=== PATIENT | male | born 1990 | race Caucasian/White ===

== ENCOUNTER → 2017-05-19 | Outpatient (CLI) | payer MEDICARE, OTHER ==
[~2017-05-19] MED LIST: /CELE20CA OR; /DULO30CA PO; /LOR25TA PO; /QUET10TA OR; ATIV0.5T OR; BACL10TA2 OR; BUTR10DI TD; BUTR20DI TD; CARB10TAXR OR; COMPOUND CREAM TOP; DILA4TAB PO; DIVA50TAEC PO; FLON0.05; GABA300C2 PO; HYDR-3719 PO; LIDO5DIS EX; LORA0.5T PO; LYRI200C PO; LYRI75CA PO; MAXA5TAB OR; MAXA5TAB10 PO; META800T82 PO; METH750T OR; METH750T PO; OXYCODONE IR PO; PERC10TA26 PO; PERC7.5T12 PO; PERCOCET PO; SIMV10TA2 OR; TOPA200T PO; TOPA50TA PO; TOPI200T OR; TPS CREAM TOP; TRAZ50TA2 PO; VALI2TAB PO; VICO5TAB OR; VIMP50TA3 PO; ZANA4CAP PO; [UNRECOGNIZED DRUG - CODE] PO; [UNRECOGNIZED DRUG - REMARK] TD; lovaza PO; nuvigil PO; topical cream TOP; vimpat PO
--- NOTE | 2017-06-07 01:13 | ECWPNPC ---
PATIENT NAME: JEIMY MARIE : 1990 GENDER: MALE VISIT DATE: 05/19/2017 DISCHARGE DATE: 05/19/17 1627 VISIT LOCKED DATE TIME: PHYSICIAN: DONALD BOWMAN RESOURCE: DONALD BOWMAN REASON FOR APPOINTMENT 1. BACK/NECK PAIN HISTORY OF PRESENT ILLNESS HISTORY OF PRESENT ILLNESS: PAIN THE PATIENT DESCRIBES THE PAIN... 26 YEAR OLD MALE PATIENT WITH HISTORY OF CHRONIC BACK PAIN. PATIENT DESCRIBES THE PAIN ACHING, SHARP, STABBING, SORE, AND HAVING IT ALL THE TIME WITH A PAIN SCORE OF 5-6/10. PATIENT IS USING CYCLOBENZAPRINE NEEDED FOR PAIN AND STATES THE MEDICATION DOES HELP BUT HE STILL HAS A LOT OF PAIN. PATIENT RECEIVED TRIGGER POINTS INJECTIONS ON 10/11/17 AND REPORTS ONLY HAVING A FEW WEEKS OF RELIEF FROM THE INJECTION. PATIENT DENIES UNEXPLAINABLE WEIGHT LOSS, FEVER, CHILLS, NEW CHANGES ON HIS URINARY OR BOWEL CONTROL. FALL RISK SCREENING: SCREENING :NO FALLS IN THE PAST YEAR CURRENT MEDICATIONS TAKING MAXALT 10 MG TABLET 1 TABLET NEEDED ONE TIME ORALLY PRN, NOTES: NONE TAKING DEPAKOTE 500 MG TABLET DELAYED RELEASE 5 ORALLY ONCE DAILY, NOTES: 10/11/16 1000 TAKING CYCLOBENZAPRINE HCL 5 MG TABLET 1 TABLET NEEDED ORALLY THREE TIMES A DAY TAKING SEROQUEL 50 MG TABLET 1 TABLET ORALLY ONCE A DAY TAKING MELATONIN 3 MG TABLET 1 TABLET AT BEDTIME NEEDED WITH FOOD ORALLY ONCE A DAY TAKING SERTRALINE HCL 100 MG TABLET 2 ORALLY ONCE A DAY NOT-TAKING IBUPROFEN 200 MG TABLET 1 TABLET NEEDED ORALLY EVERY 6 HRS, NOTES: 10/11/16 1200 NOT-TAKING ACETAMINOPHEN 500 MG CAPSULE 2 CAPSULES NEEDED ORALLY EVERY 6 HRS, NOTES: 10/10/16 DISCONTINUED SKELAXIN 800 MG TABLET 1 TABLET ORALLY Q 8 HRS NEEDED FOR SPASMS AND PAIN MDD3, NOTES: 10/11/16 1000 MEDICATION LIST REVIEWED AND RECONCILED WITH THE PATIENT PAST MEDICAL HISTORY SEIZURE DISORDER OCCIPITAL NEURALGIA HTN-POSSIBLY IN THE PAST PATIENT DOESNT KNOW MIGRAINES 2006- PNEUMONIA NARCOLEPSY ? ANXIETY / DEPRESSION CARPAL TUNNEL DEGENERATIVE DISC DISEASE IN C- SPINE AND L-SPINE ALLERGIES TRAMADOL HCL: SEIZURE HX: CONTRAINDICATION SOCIAL HISTORY GENERAL: TOBACCO USE ARE YOU A:USES TOBACCO IN OTHER FORMS RECREATIONAL DRUG USE: NEVER DRUG USE?NO CAFFEINE: YES CAFFEINE USE?YES 1-2 POTS COFFEE OCCUPATION: UNEMPLOYED. DIET: REGULAR. EXERCISE: NO REGULAR EXERCISE. MARITAL STATUS: . OTHERS AT HOME: SPOUSE, CHILDREN. EPISCOPALIAN NO JAINISM BELIEFS THAT WOULD IMPACT HEALTH CARE. LANGUAGE INDONESIAN. EDUCATION GED. LEARNING BARRIERS / SPECIAL NEEDS ABILITY TO UNDERSTAND VERBAL INSTRUCTIONS AVERAGE, ABILITY TO UNDERSTAND WRITTEN INSTRUCTIONS AVERAGE, KNOWLEDGE OF EDUCATIONAL NEEDS/TREATMENT PLAN AVERAGE, PLANS TO OVERCOME BARRIERS WRITTEN MATERIALS, LEARNING PREFERENCE VERBAL INSTRUCTION/DEMONSTRATION, ORIENTED TO PLAN OF CARE: PATIENT, PAIN MANAGEMENT PATIENT. HOUSING: OWNS HOME. SMOKES MARIJUANA, 2-3X A DAY. REVIEW OF SYSTEMS REVIEWED BY: PROVIDER: DONALD BOWMAN MD . CONSTITUTIONAL: ANY CHANGE IN YOUR MEDICAL CONDITION? NO . CHILLS NO . FEVER NO . INFECTION: DO YOU HAVE NEW INFECTIONS? NO . DO YOU HAVE HISTORY OF MRSA? NO . MUSCULOSKELETAL: ANY NEW PATTERNS OF PAIN OR NUMBNESS? NO . GASTROENTEROLOGY: ANY NEW CHANGE IN BOWEL CONTROL? NO . GENITOURINARY: ANY NEW CHANGE IN BLADDER CONTROL? NO . IS THERE A CHANCE YOU COULD BE ? NO . HEMATOLOGY/LYMPH: DO YOU TAKE ANY BLOOD THINNERS? (FOR EXAMPLE- COUMADIN, PLAVIX, AGGRENOX, PLATEL, PRADAXA, OR XARELTO) NO . WHEN WAS YOUR LAST DOSE? DATE: TIME: . NEUROLOGY: HAVE YOU FALLEN IN THE PAST 6 MONTHS? NO . ANY NEW EXTREMITY NUMBNESS OR WEAKNESS? NO . CARDIOLOGY: DO YOU HAVE A PACEMAKER OR DEFIBRILLATOR? NO . RESPIRATORY: HAVE YOU BEEN SICK IN THE PAST WEEK? NO . FEVER NO . FLU LIKE SYMPTOMS? NO . COUGH NO . INTEGUMENTARY: DO YOU HAVE ANY RASHES OR OPEN SORES? NO . ALLERGIC/IMMUNO: ARE YOU ALLERGIC TO SHELLFISH OR IV DYE? NO . ANY NEW ALLERGIES? NO . PSYCHIATRIC: DO YOU HAVE THOUGHTS OF HURTING YOURSELF OR SOMEONE ELSE? NO . ARE YOU ABUSED, NEGLECTED, OR IN AN UNSAFE ENVIRONMENT? NO . ENDOCRINOLOGY: ARE YOU DIABETIC? NO . OTHER: DO YOU NEED ANY PRESCRIPTIONS? YES . IF YES, PLEASE LIST: ____MUSCLE RELAXER . ANY NEW PROBLEMS WITH YOUR MEDICATIONS? NO . WHEN DID YOU LAST EAT? ____ . WHEN DID YOU LAST DRINK? ____ . WHAT DID YOU LAST DRINK? ____ . NAME OF PERSON DRIVING YOU HOME? ____ . DO YOU HAVE ANY OTHER QUESTIONS OR CONCERNS NO . VITAL SIGNS WT 217.2 LBS, HT 68 IN, BMI 33.02 INDEX, BP 155/89 MM HG, HR 79 /MIN, RR 16 /MIN, TEMP 97.9 F, OXYGEN SAT % 99%, NA INITIALS TR 1510. EXAMINATION : PATIENT IS ALERT O X 3 AND COOPERATIVE. TENDERNESS IN THE CERVICAL AND LOWER BACK AREA AND PARASPINAL MUSCLE GROUP. BANDS OF TISSUE, RESTRICTION OF MOVEMENT, AND PRESENCE OF TRIGGER POINTS IN THE BACK AREA. LEFT ARM AND HAND MACHINE SEWER IS WEAKER THEN THE RIGHT. THORACIC MRI ON 06/22/16 SHOWS DEGENERATIVE DISC CHANGES AT T10-T11 AND T11-T12. PENDING CERVICAL MRI. ASSESSMENTS MYALGIA - M79.1 (PRIMARY) CERVICALGIA - M54.2 TREATMENT MYALGIA NOTES: WE DISCUSSED SEVERAL ISSUES WITH MR. MARIE'S PAIN MANAGEMENT CASE. AT THIS TIME THE PATIENT WILL CONTINUE TO USE CYCLOBENZAPRINE FOR THE MUSCLE SPASMS. I WOULD LIKE THE PATIENT TO START IBUPROFEN WITH FOOD TO HELP WITH INFLAMMATION. PATIENT WAS ADVISED TO STOP THE MEDICATION IS HE HAS ANY ADVERSE SIDE EFFECTS TO THE MEDICATION. I WOULD LIKE THE PATIENT TO GET A CERVICAL MRI DUE TO THE NEW RADICULAR PAIN HE IS EXPERIENCING. WE WILL DISCUSS FURTHER INTERVENTIONS AFTER THE MRI RESULTS ARE REVIEWED. INSTRUCTIONS WERE GIVEN, QUESTIONS WERE ANSWERED, PATIENT REPORTS UNDERSTANDING AND AGREES WITH THE PLAN. I, MALIHA LOMBARDO, DOCUMENTED THE ABOVE INFORMATION ACTING A SCRIBE FOR DR. BOWMAN. I HAVE REVIEWED THE ABOVE DOCUMENT, WRITTEN BY MALIHA DENTON AND I VERIFY THAT IT IS ACCURATE. OTHERS REFILL CYCLOBENZAPRINE HCL TABLET, 10 MG, 1 TABLET NEEDED, ORALLY, THREE TIMES A DAY NEEDED FOR SPASMS AND PAIN MDD3, 30 DAY(S), 90, REFILLS 2 START IBUPROFEN TABLET, 800 MG, 1 TABLET WITH FOOD OR MILK, ORALLY, EVERY 6 HOURS NEEDED FOR PAIN MDD3, 30 DAY(S), 50, REFILLS 2 PROCEDURE CODES FA211 ESTABILISHED PATIENT [facility] FAC[facility] CHARGE G8427 DOC MEDS VERIFIED W/PT OR RE G8730 PAIN ASSESS POS TOOL F/U PLAN DOC DISPOSITION & COMMUNICATION FOLLOW UP 3 WEEKS ELECTRONICALLY SIGNED BY DONALD BOWMAN MD ON 06/06/2017 AT 08:15 PM EDT DISCLAIMER : THIS IS A VISIT SUMMARY EXTRACTED FROM THE [employer]CLINICALWORKS CHART. IT IS NOT A COPY OF THE ECL[employer]ICALWORKS PROGRESS NOTE. MTDD
== END ==
LOC: M PAIN 14:40
PROVIDERS: ATTEND Anesthesiology
DX: G89.29 Other chronic pain (principal); M54.2 Cervicalgia; M79.1 Myalgia; G40.919 Epilepsy, unspecified, intractable, without status epilepticus; G43.909 Migraine, unspecified, not intractable, without status migrainosus; F41.9 Anxiety disorder, unspecified; F32.9 Major depressive disorder, single episode, unspecified; F17.200 Nicotine dependence, unspecified, uncomplicated; Z88.5 Allergy status to narcotic agent; Z79.899 Other long term (current) drug therapy

== ENCOUNTER → 2017-06-06 | Outpatient (CLI) | payer MEDICARE, OTHER ==
--- NOTE | 2017-06-07 08:12 | REP ---
MRI cervical spine without contrast: History: Chronic pain. No known injury. Left-sided neck pain. Comparison MRI cervical spine April 11, 2014. Technique: Sagittal and axial T1 and T2-weighted scans are acquired in the usual fashion with and without fat saturation. Sequences include spin echo, turbo spin-echo, and STIR imaging sequences. MRI findings: Vertebral body heights are preserved alignment is normal. There is slight straightening. T1 and T2-weighted bony signal intensity is normal. Craniocervical junction is unremarkable. Cervical cord is normal in coarse caliber and signal intensity on T1 and T2-weighted scans as before. No cord compressive lesion is seen. There is minimal narrowing of the C4-5 and C5-6 disc spaces consistent with early degenerative disc disease. There is minimal central disc bulging at each of these two levels. No focal disc protrusion is seen. No neural foraminal compromise is seen. No central canal stenosis noted. No significant change from the 2014 prior study. Impression: Minimal disc bulging and disc space narrowing C4-5 and C5-6 again noted unchanged. No other significant finding. Signed by Kayode Aquino MD 06/07/2017 09:12 A
== END ==
LOC: M RAD 17:34
PROVIDERS: ATTEND Anesthesiology
DX: M50.121 Cervical disc disorder at C4-C5 level with radiculopathy (principal); M50.122 Cervical disc disorder at C5-C6 level with radiculopathy

== ENCOUNTER → 2017-07-15 | Outpatient (CLI) | payer MEDICARE, OTHER ==
--- NOTE | 2017-07-28 02:10 | ECWPNPC ---
PATIENT NAME: JEIMY MARIE : 1990 GENDER: MALE VISIT DATE: 07/15/2017 DISCHARGE DATE: 07/15/17 1644 VISIT LOCKED DATE TIME: PHYSICIAN: DONALD BOWMAN RESOURCE: DONALD BOWMAN REASON FOR APPOINTMENT 1. BACK/NECK PAIN HISTORY OF PRESENT ILLNESS HISTORY OF PRESENT ILLNESS: PAIN THE PATIENT DESCRIBES THE PAIN... 26 YEAR OLD MALE PATIENT WITH HISTORY OF CHRONIC BACK PAIN. PATIENT DESCRIBES THE PAIN ACHING, SHARP, STABBING, SORE, AND HAVING IT ALL THE TIME WITH A PAIN SCORE OF 5-6/10. PATIENT IS USING CYCLOBENZAPRINE NEEDED FOR PAIN AND STATES THE MEDICATION DOES HELP BUT HE STILL HAS A LOT OF PAIN. PATIENT DENIES UNEXPLAINABLE WEIGHT LOSS, FEVER, CHILLS, NEW CHANGES ON HIS URINARY OR BOWEL CONTROL. FALL RISK SCREENING: SCREENING :NO FALLS IN THE PAST YEAR CURRENT MEDICATIONS TAKING MAXALT 10 MG TABLET 1 TABLET NEEDED ONE TIME ORALLY PRN, NOTES: NONE TAKING DEPAKOTE 500 MG TABLET DELAYED RELEASE 5 ORALLY ONCE DAILY, NOTES: 10/11/16 1000 TAKING MELATONIN 3 MG TABLET 1 TABLET AT BEDTIME NEEDED WITH FOOD ORALLY ONCE A DAY TAKING SERTRALINE HCL 100 MG TABLET 2 ORALLY ONCE A DAY TAKING CYCLOBENZAPRINE HCL 10 MG TABLET 1 TABLET NEEDED ORALLY THREE TIMES A DAY NEEDED FOR SPASMS AND PAIN MDD3 TAKING IBUPROFEN 800 MG TABLET 1 TABLET WITH FOOD OR MILK ORALLY EVERY 6 HOURS NEEDED FOR PAIN MDD3 TAKING TRAZODONE HCL 50 MG TABLET 1 TABLET AT BEDTIME NEEDED ORALLY ONCE A DAY TAKING CLONIDINE HCL 0.3 MG TABLET 1 TABLET ORALLY TWICE A DAY NOT-TAKING SEROQUEL 50 MG TABLET 1 TABLET ORALLY ONCE A DAY NOT-TAKING IBUPROFEN 200 MG TABLET 1 TABLET NEEDED ORALLY EVERY 6 HRS, NOTES: 10/11/16 1200 NOT-TAKING ACETAMINOPHEN 500 MG CAPSULE 2 CAPSULES NEEDED ORALLY EVERY 6 HRS, NOTES: 10/10/16 MEDICATION LIST REVIEWED AND RECONCILED WITH THE PATIENT PAST MEDICAL HISTORY SEIZURE DISORDER OCCIPITAL NEURALGIA HTN-POSSIBLY IN THE PAST PATIENT DOESNT KNOW MIGRAINES 2006- PNEUMONIA NARCOLEPSY ? ANXIETY / DEPRESSION CARPAL TUNNEL DEGENERATIVE DISC DISEASE IN C- SPINE AND L-SPINE ALLERGIES TRAMADOL HCL: SEIZURE HX: CONTRAINDICATION SOCIAL HISTORY GENERAL: TOBACCO USE ARE YOU A:USES TOBACCO IN OTHER FORMS CHEWS 1/2 CAN/DAY SMOKING CESSATION INFORMATION GIVEN07/15/2017 RECREATIONAL DRUG USE: NEVER DRUG USE?NO CAFFEINE: YES CAFFEINE USE?YES 1-2 POTS COFFEE OCCUPATION: UNEMPLOYED. DIET: REGULAR. EXERCISE: NO REGULAR EXERCISE. MARITAL STATUS: . OTHERS AT HOME: SPOUSE, CHILDREN. JUDAISM NO CONGREGATION BELIEFS THAT WOULD IMPACT HEALTH CARE. LANGUAGE AZERI. EDUCATION GED. LEARNING BARRIERS / SPECIAL NEEDS ABILITY TO UNDERSTAND VERBAL INSTRUCTIONS AVERAGE, ABILITY TO UNDERSTAND WRITTEN INSTRUCTIONS AVERAGE, KNOWLEDGE OF EDUCATIONAL NEEDS/TREATMENT PLAN AVERAGE, PLANS TO OVERCOME BARRIERS WRITTEN MATERIALS, LEARNING PREFERENCE VERBAL INSTRUCTION/DEMONSTRATION, ORIENTED TO PLAN OF CARE: PATIENT, PAIN MANAGEMENT PATIENT. PAIN CLINIC PFS, CLERGY, PUBLIC HEALTH REFERRALS HAS THE PATIENT BEEN EDUCATED REGARDING HIS/HER PLAN OF CARE?YES ORIENTED TO PLAN OF CARE HAS THE PATIENT BEEN EDUCATED REGARDING PAIN, THE RISK FOR PAIN, THE IMPORTANCE OF EFFECTIVE PAIN MANAGEMENT, AND THE PAIN ASSESSMENT PROCESS?YES HOUSING: OWNS HOME. SMOKES MARIJUANA, 2-3X A DAY. REVIEW OF SYSTEMS REVIEWED BY: PROVIDER: DONALD BOWMAN MD . CONSTITUTIONAL: ANY CHANGE IN YOUR MEDICAL CONDITION? NO . CHILLS NO . FEVER NO . INFECTION: DO YOU HAVE NEW INFECTIONS? NO . DO YOU HAVE HISTORY OF MRSA? NO . MUSCULOSKELETAL: ANY NEW PATTERNS OF PAIN OR NUMBNESS? NO . GASTROENTEROLOGY: ANY NEW CHANGE IN BOWEL CONTROL? NO . GENITOURINARY: ANY NEW CHANGE IN BLADDER CONTROL? NO . IS THERE A CHANCE YOU COULD BE ? NO . HEMATOLOGY/LYMPH: DO YOU TAKE ANY BLOOD THINNERS? (FOR EXAMPLE- COUMADIN, PLAVIX, AGGRENOX, PLATEL, PRADAXA, OR XARELTO) NO . WHEN WAS YOUR LAST DOSE? DATE: TIME: . NEUROLOGY: HAVE YOU FALLEN IN THE PAST 6 MONTHS? YES R/T SEIZURE . ANY NEW EXTREMITY NUMBNESS OR WEAKNESS? NO . CARDIOLOGY: DO YOU HAVE A PACEMAKER OR DEFIBRILLATOR? NO . RESPIRATORY: HAVE YOU BEEN SICK IN THE PAST WEEK? NO . FEVER NO . FLU LIKE SYMPTOMS? NO . COUGH NO . INTEGUMENTARY: DO YOU HAVE ANY RASHES OR OPEN SORES? NO . ALLERGIC/IMMUNO: ARE YOU ALLERGIC TO SHELLFISH OR IV DYE? NO . ANY NEW ALLERGIES? NO . PSYCHIATRIC: DO YOU HAVE THOUGHTS OF HURTING YOURSELF OR SOMEONE ELSE? NO . ARE YOU ABUSED, NEGLECTED, OR IN AN UNSAFE ENVIRONMENT? NO . ENDOCRINOLOGY: ARE YOU DIABETIC? NO . OTHER: DO YOU NEED ANY PRESCRIPTIONS? NO . IF YES, PLEASE LIST: ____ . ANY NEW PROBLEMS WITH YOUR MEDICATIONS? NO . WHEN DID YOU LAST EAT? ____ . WHEN DID YOU LAST DRINK? ____ . WHAT DID YOU LAST DRINK? ____ . NAME OF PERSON DRIVING YOU HOME? ____ . DO YOU HAVE ANY OTHER QUESTIONS OR CONCERNS NO . VITAL SIGNS WT 226.2 LBS, HT 68 IN, BMI 34.39 INDEX, BP 179/107 MM HG, HR 95 /MIN, RR 18 /MIN, TEMP 97.4 F, OXYGEN SAT % 97%, SAFE IN ENV? (Y/N) YES, REVIEWED BY: LOUIE Welch. EXAMINATION : PATIENT IS ALERT O X 3 AND COOPERATIVE. TENDERNESS IN THE CERVICAL AND LOWER BACK AREA AND PARASPINAL MUSCLE GROUP. BANDS OF TISSUE, RESTRICTION OF MOVEMENT, AND PRESENCE OF TRIGGER POINTS IN THE BACK AREA. LEFT ARM AND HAND RAILROAD TRACK INSPECTOR IS WEAKER THEN THE RIGHT. THORACIC MRI ON 06/22/16 SHOWS DEGENERATIVE DISC CHANGES AT T10-T11 AND T11-T12. CERVICAL MRI DONE ON 06/06/17 SHOWS FACET HYPERTROPHY WELL HAS DISC BULGING AT C4-C5 AND C5-C6. ASSESSMENTS SPONDYLOSIS OF CERVICAL REGION WITHOUT MYELOPATHY OR RADICULOPATHY - M47.812 (PRIMARY) CERVICAL DISC DISORDER AT C4-C5 LEVEL WITH RADICULOPATHY - M50.121 CERVICAL DISC DISORDER AT C5-C6 LEVEL WITH RADICULOPATHY - M50.122 MYALGIA - M79.1 SPONDYLOSIS OF LUMBAR REGION WITHOUT MYELOPATHY OR RADICULOPATHY - M47.816 TREATMENT SPONDYLOSIS OF CERVICAL REGION WITHOUT MYELOPATHY OR RADICULOPATHY NOTES: WE DISCUSSED SEVERAL ISSUES WITH MR. MARIE'S PAIN MANAGEMENT CASE. AT THIS TIME THE PATIENT WILL CONTINUE WITH THE SAME MEDICATION REGIME BEFORE. PATIENT WILL USE CYCLOBENZAPRINE FOR THE MUSCLE SPASMS AND IBUPROFEN FOR THE INFLAMMATION. AFTER VIEWING THE PATIENT'S MRI AND WHERE THE PATIENT STATES HIS WORST PAIN IS I WOULD LIKE TO PROCEED WITH A CERVICAL FACET BLOCK. WE DISCUSSED THE RISKS, BENENFITS, AND ALTNERATIVES OF THE INJECTION AND THE PATIENT WOULD LIKE TO PROCEED AT THIS TIME. INSTRUCTIONS WERE GIVEN, QUESTIONS WERE ANSWERED, PATIENT REPORTS UNDERSTANDING AND AGREES WITH THE PLAN. IMALIHA, DOCUMENTED THE ABOVE INFORMATION ACTING A SCRIBE FOR DR. BOWMAN. I HAVE REVIEWED THE ABOVE DOCUMENT, WRITTEN BY MALIHA DENTON AND I VERIFY THAT IT IS ACCURATE. OTHERS REFILL CYCLOBENZAPRINE HCL TABLET, 10 MG, 1 TABLET NEEDED, ORALLY, THREE TIMES A DAY NEEDED FOR SPASMS AND PAIN MDD3, 30 DAY(S), 90, REFILLS 2 REFILL IBUPROFEN TABLET, 800 MG, 1 TABLET WITH FOOD OR MILK, ORALLY, EVERY 6 HOURS NEEDED FOR PAIN MDD3, 30 DAY(S), 50, REFILLS 2 NOTES: FACET JOINT INJECTION MATERIAL WAS PRINTED,FACET JOINT INJECTION: YOUR EXPERIENCE MATERIAL WAS PRINTED. PROCEDURE CODES FA211 ESTABILISHED PATIENT [facility] CHARGE G8427 DOC MEDS VERIFIED W/PT OR RE G8730 PAIN ASSESS POS TOOL F/U PLAN DOC DISPOSITION & COMMUNICATION FOLLOW UP CFBT AFTER APPROVAL ELECTRONICALLY SIGNED BY DONALD BOWMAN MD ON 07/25/2017 AT 01:48 PM EDT DISCLAIMER : THIS IS A VISIT SUMMARY EXTRACTED FROM THE ECLINICALWORKS CHART. IT IS NOT A COPY OF THE ECLINICALWORKS PROGRESS NOTE. BRY
== END ==
LOC: M PAIN 14:30
PROVIDERS: ATTEND Anesthesiology
DX: M47.812 Spondylosis without myelopathy or radiculopathy, cervical region (principal); M50.121 Cervical disc disorder at C4-C5 level with radiculopathy; M50.122 Cervical disc disorder at C5-C6 level with radiculopathy; M79.1 Myalgia; M47.816 Spondylosis without myelopathy or radiculopathy, lumbar region; M54.9 Dorsalgia, unspecified; G89.29 Other chronic pain; F17.201 Nicotine dependence, unspecified, in remission; Z79.899 Other long term (current) drug therapy; Z88.8 Allergy status to other drugs, medicaments and biological substances

== ENCOUNTER → 2017-08-31 | Outpatient (CLI) | payer MEDICARE, OTHER ==
--- NOTE | 2017-09-21 01:22 | ECWPNPC ---
PATIENT NAME: JEIMY MARIE : 1990 GENDER: MALE VISIT DATE: 08/31/2017 DISCHARGE DATE: 08/31/17 1505 VISIT LOCKED DATE TIME: PHYSICIAN: UMA OWENS RESOURCE: UMA OWENS REASON FOR APPOINTMENT 1. POST PN HISTORY OF PRESENT ILLNESS HISTORY OF PRESENT ILLNESS: HERE FOR POST PROCEDURE F/U.HAD BILATERAL CERVICAL FACET THERAPEUTIC BLOCKS ON 08-17-17.REPORTING MARKED REDUCTION IN NECK PAIN THAT CONTINUES TODAY.RATING PAIN VAS NECK2/10 VAS.RATING LOW BACK AND SHOULDER PAIN 6/10 VAS. PAIN THE PATIENT DESCRIBES THE PAIN... FALL RISK SCREENING: SCREENING :NO FALLS IN THE PAST YEAR CURRENT MEDICATIONS UNKNOWN MAXALT 10 MG TABLET 1 TABLET NEEDED ONE TIME ORALLY PRN, NOTES: NOT LATELY UNKNOWN DEPAKOTE 500 MG TABLET DELAYED RELEASE 5 ORALLY ONCE DAILY UNKNOWN MELATONIN 3 MG TABLET 1 TABLET AT BEDTIME NEEDED WITH FOOD ORALLY ONCE A DAY UNKNOWN SERTRALINE HCL 100 MG TABLET 2 ORALLY ONCE A DAY UNKNOWN TRAZODONE HCL 50 MG TABLET 1 TABLET AT BEDTIME NEEDED ORALLY ONCE A DAY UNKNOWN CLONIDINE HCL 0.3 MG TABLET 1 TABLET ORALLY TWICE A DAY UNKNOWN CYCLOBENZAPRINE HCL 10 MG TABLET 1 TABLET NEEDED ORALLY THREE TIMES A DAY NEEDED FOR SPASMS AND PAIN MDD3 UNKNOWN IBUPROFEN 800 MG TABLET 1 TABLET WITH FOOD OR MILK ORALLY EVERY 6 HOURS NEEDED FOR PAIN MDD3 UNKNOWN GABAPENTIN 300 MG CAPSULE 1 CAPSULE ORALLY THREE TIMES A DAY UNKNOWN SEROQUEL 50 MG TABLET 1 TABLET ORALLY ONCE A DAY UNKNOWN IBUPROFEN 200 MG TABLET 1 TABLET NEEDED ORALLY EVERY 6 HRS, NOTES: 10/11/16 1200 UNKNOWN ACETAMINOPHEN 500 MG CAPSULE 2 CAPSULES NEEDED ORALLY EVERY 6 HRS, NOTES: 10/10/16 MEDICATION LIST REVIEWED AND RECONCILED WITH THE PATIENT PAST MEDICAL HISTORY OCCIPITAL NEURALGIA HTN-POSSIBLY IN THE PAST PATIENT DOESNT KNOW MIGRAINES 2006- PNEUMONIA NARCOLEPSY ? 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 CONSTITUTIONAL: ANY CHANGE IN YOUR MEDICAL CONDITION? NO . CHILLS NO . FEVER NO . INFECTION: DO YOU HAVE NEW INFECTIONS? NO . DO YOU HAVE HISTORY OF MRSA? NO . MUSCULOSKELETAL: ANY NEW PATTERNS OF PAIN OR NUMBNESS? NO . GASTROENTEROLOGY: ANY NEW CHANGE IN BOWEL CONTROL? NO . GENITOURINARY: ANY NEW CHANGE IN BLADDER CONTROL? NO . IS THERE A CHANCE YOU COULD BE ? NO . HEMATOLOGY/LYMPH: DO YOU TAKE ANY BLOOD THINNERS? (FOR EXAMPLE- COUMADIN, PLAVIX, AGGRENOX, PLATEL, PRADAXA, OR XARELTO) NO . WHEN WAS YOUR LAST DOSE? DATE: TIME: . NEUROLOGY: HAVE YOU FALLEN IN THE PAST 6 MONTHS? NO . ANY NEW EXTREMITY NUMBNESS OR WEAKNESS? NO . CARDIOLOGY: DO YOU HAVE A PACEMAKER OR DEFIBRILLATOR? NO . RESPIRATORY: HAVE YOU BEEN SICK IN THE PAST WEEK? NO . FEVER NO . FLU LIKE SYMPTOMS? NO . COUGH NO . INTEGUMENTARY: DO YOU HAVE ANY RASHES OR OPEN SORES? NO . ALLERGIC/IMMUNO: ARE YOU ALLERGIC TO SHELLFISH OR IV DYE? NO . ANY NEW ALLERGIES? NO . PSYCHIATRIC: DO YOU HAVE THOUGHTS OF HURTING YOURSELF OR SOMEONE ELSE? NO . ARE YOU ABUSED, NEGLECTED, OR IN AN UNSAFE ENVIRONMENT? NO . ENDOCRINOLOGY: ARE YOU DIABETIC? NO . OTHER: DO YOU NEED ANY PRESCRIPTIONS? NO . IF YES, PLEASE LIST: ____ . ANY NEW PROBLEMS WITH YOUR MEDICATIONS? NO . WHEN DID YOU LAST EAT? ____ . WHEN DID YOU LAST DRINK? ____ . WHAT DID YOU LAST DRINK? ____ . NAME OF PERSON DRIVING YOU HOME? ____ . DO YOU HAVE ANY OTHER QUESTIONS OR CONCERNS NO . VITAL SIGNS WT 233.5 LBS, HT 68 IN, BMI 35.50 INDEX, BP 156/93 MM HG, HR 96 /MIN, RR 16 /MIN, TEMP 98.9 F, OXYGEN SAT % 96%, NA INITIALS TL 1403. EXAMINATION GENERAL EXAMINATION: GENERAL APPEARANCE:ALERT/ORIENTED.NO ACUTE DISTRESS . PSYCHAFFECT NORMAL . HEENT:NORMOCEPHALIC PERRLA . LUNGS:LUNG PEREZ ARE CLEAR TO AUSCULTATION BILATERALLY. GOOD MOVEMENT OF AIR . HEART:S1, S2 IN A REGULAR RATE AND RHYTHM. NO SIGNIFICANT MURMURS, RUBS OR GALLOPS NOTED . MUSCULOSKELETAL:MUSCLE STRENGTH TESTING 5/5 BILATERAL LOWER EXTREMITIES, PALPATION: POSITIVE FOR PAIN OVER L/S SPINE. POSITIVE FOR PAIN OVER L/S PARSPINALS.SPECIFIC POINT TENDERNESS OVER L4/5-L5/S1 BILAT.LUMBAR FACETS WITH FACET LOADING. 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 L4/5-L5/S1 THERAPEUTIC FACET BLOCK. PROCEDURE CODES FA211 ESTABILISHED PATIENT THE [facility] FACILITY CHARGE G8730 PAIN ASSESS POS TOOL F/U PLAN DOC G8427 DOC MEDS VERIFIED W/PT OR RE DISPOSITION & COMMUNICATION FOLLOW UP 2WK POST (REASON: BIALT. L4/5-L5/S1 THERAPEUTIC FACET BLOCK) ELECTRONICALLY SIGNED BY KERMIT WALKER ON 09/19/2017 AT 07:00 PM EST DISCLAIMER : THIS IS A VISIT SUMMARY EXTRACTED FROM THE [employer] CHART. IT IS NOT A COPY OF THE [employer] PROGRESS NOTE. BRY
== END ==
LOC: M PAIN 13:45
PROVIDERS: ATTEND Nurse Practitioner Family
DX: M47.816 Spondylosis without myelopathy or radiculopathy, lumbar region (principal); M47.817 Spondylosis without myelopathy or radiculopathy, lumbosacral region; M51.26 Other intervertebral disc displacement, lumbar region; M54.2 Cervicalgia; Z79.899 Other long term (current) drug therapy; F17.228 Nicotine dependence, chewing tobacco, with other nicotine-induced disorders; Z88.8 Allergy status to other drugs, medicaments and biological substances

== ENCOUNTER → 2017-09-08 | Outpatient (CLI) | payer MEDICARE, OTHER ==
[~2017-09-08] MED LIST changes: +BUPIVACAINE HCL 0.25% 30 ML VIAL As Ordered ONE; +ISOVUE-M 300 61% 15ML VIAL (Q9967) As Ordered ONE; +LIDOCAINE 1% SDV INJ 30 ML VIAL As Ordered ONE; +TRIAMCINOLONE ACETONIDE SUSP 40 MG/ML VIAL (J3301) As Ordered ONE; +diazePAM 5 MG TAB As Ordered ONE; +oxyCODONE 5MG TAB As Ordered ONE
--- NOTE | 2017-09-08 16:05 | REP ---
FACET BLOCK: The images were reviewed with Dr. Kay. The patient has a history of low back pain. The portable C-ARM was provided in the OR for Dr. Casper for fluoroscopic guidance. 1 intraoperative fluoroscopic spot film was obtained for needle placement verification for left lumbar facet injection. The film is on the PACs system and is available for review. 13 seconds of fluoroscopic time was utilized for this procedure. Reviewed by CATRACHITO Bajwa 09/09/2017 03:43 PEdited and Signed by Néstor Kay MD 09/09/2017 03:44 P
--- NOTE | 2017-09-20 00:57 | ECWPNPC ---
PATIENT NAME: JEIMY MARIE : 1990 GENDER: MALE VISIT DATE: 09/08/2017 DISCHARGE DATE: 09/08/17 1305 VISIT LOCKED DATE TIME: PHYSICIAN: DONALD BOWMAN RESOURCE: DONALD BOWMAN REASON FOR APPOINTMENT 1. BIALT. L4/5-L5/S1 THERAPEUTIC FACET BLOCK HISTORY OF PRESENT ILLNESS HISTORY OF PRESENT ILLNESS: PAIN THE PATIENT DESCRIBES THE PAIN... FALL RISK SCREENING: SCREENING :NO FALLS IN THE PAST YEAR CURRENT MEDICATIONS TAKING MAXALT 10 MG TABLET 1 TABLET NEEDED ONE TIME ORALLY PRN, NOTES: 09/07 1000 TAKING DEPAKOTE 500 MG TABLET DELAYED RELEASE 5 ORALLY ONCE DAILY, NOTES: 09/07 2100 TAKING MELATONIN 3 MG TABLET 1 TABLET AT BEDTIME NEEDED WITH FOOD ORALLY ONCE A DAY, NOTES: 09/07 2100 TAKING SERTRALINE HCL 100 MG TABLET 2 ORALLY ONCE A DAY, NOTES: 09/08 1000 TAKING TRAZODONE HCL 50 MG TABLET 1 TABLET AT BEDTIME NEEDED ORALLY ONCE A DAY, NOTES: 09/07 2100 TAKING CLONIDINE HCL 0.3 MG TABLET 1 TABLET ORALLY TWICE A DAY, NOTES: 09/08 1000 TAKING CYCLOBENZAPRINE HCL 10 MG TABLET 1 TABLET NEEDED ORALLY THREE TIMES A DAY NEEDED FOR SPASMS AND PAIN MDD3, NOTES: 09/08 1000 TAKING IBUPROFEN 800 MG TABLET 1 TABLET WITH FOOD OR MILK ORALLY EVERY 6 HOURS NEEDED FOR PAIN MDD3, NOTES: 09/08 1000 TAKING GABAPENTIN 300 MG CAPSULE 1 CAPSULE ORALLY THREE TIMES A DAY, NOTES: 09/07 2100 TAKING ACETAMINOPHEN 500 MG CAPSULE 2 CAPSULES NEEDED ORALLY EVERY 6 HRS, NOTES: NONE RECENT DISCONTINUED SEROQUEL 50 MG TABLET 1 TABLET ORALLY ONCE A DAY DISCONTINUED IBUPROFEN 200 MG TABLET 1 TABLET NEEDED ORALLY EVERY 6 HRS, NOTES: 10/11/16 1200 MEDICATION LIST REVIEWED AND RECONCILED WITH THE PATIENT PAST MEDICAL HISTORY OCCIPITAL NEURALGIA HTN-POSSIBLY IN THE PAST PATIENT DOESNT KNOW MIGRAINES 2006- PNEUMONIA NARCOLEPSY ? ANXIETY / DEPRESSION CARPAL TUNNEL DEGENERATIVE DISC DISEASE IN C- SPINE AND L-SPINE SEIZURE DISORDER ALLERGIES TRAMADOL HCL: SEIZURE HX: CONTRAINDICATION SOCIAL HISTORY GENERAL: TOBACCO USE ARE YOU A:USES TOBACCO IN OTHER FORMS CHEWS 1/2 CAN/DAY SMOKING CESSATION INFORMATION GIVEN09/08/2017 HAS PATCHES RECREATIONAL DRUG USE: NEVER DRUG USE?NO CAFFEINE: YES CAFFEINE USE?YES 1-2 POTS COFFEE OCCUPATION: UNEMPLOYED. DIET: REGULAR. EXERCISE: NO REGULAR EXERCISE. MARITAL STATUS: . OTHERS AT HOME: SPOUSE, CHILDREN. RELIGIOUS [id number] HOAHAOISM LANGUAGE POLISH. EDUCATION GED. LEARNING BARRIERS / SPECIAL NEEDS ABILITY TO UNDERSTAND VERBAL INSTRUCTIONS AVERAGE, ABILITY TO UNDERSTAND WRITTEN INSTRUCTIONS AVERAGE, KNOWLEDGE OF EDUCATIONAL NEEDS/TREATMENT PLAN AVERAGE, PLANS TO OVERCOME BARRIERS WRITTEN MATERIALS, LEARNING PREFERENCE VERBAL INSTRUCTION/DEMONSTRATION, ORIENTED TO PLAN OF CARE: PATIENT, PAIN MANAGEMENT PATIENT. PAIN CLINIC PFS, CLERGY, PUBLIC HEALTH REFERRALS HAS THE PATIENT BEEN EDUCATED REGARDING HIS/HER PLAN OF CARE?YES ORIENTED TO PLAN OF CARE HAS THE PATIENT BEEN EDUCATED REGARDING PAIN, THE RISK FOR PAIN, THE IMPORTANCE OF EFFECTIVE PAIN MANAGEMENT, AND THE PAIN ASSESSMENT PROCESS?YES REVIEWED BY: 09/08/17 1130 AD. [facility] DIRECTIVES HEALTH CARE PROXY?NO WOULD YOU LIKE MORE INFORMATION?NO DO YOU HAVE A DNR?NO WOULD YOU LIKE MORE INFORMATION?NO LIVING WILL?NO WOULD YOU LIKE MORE INFORMATION?NO POWER OF STAFF COMMAND AND CONTROL OFFICER?NO WOULD YOU LIKE MORE INFORMATION?NO HOUSING: OWNS HOME. DOMESTIC VIOLENCE DO YOU FEEL SAFE IN YOUR ENVIRONMENT?YES REVIEW OF SYSTEMS REVIEWED BY: PROVIDER: . CONSTITUTIONAL: ANY CHANGE IN YOUR MEDICAL CONDITION? NO . CHILLS NO . FEVER NO . INFECTION: DO YOU HAVE NEW INFECTIONS? NO . DO YOU HAVE HISTORY OF MRSA? NO . MUSCULOSKELETAL: ANY NEW PATTERNS OF PAIN OR NUMBNESS? NO . GASTROENTEROLOGY: ANY NEW CHANGE IN BOWEL CONTROL? NO . GENITOURINARY: ANY NEW CHANGE IN BLADDER CONTROL? NO . IS THERE A CHANCE YOU COULD BE ? NO . HEMATOLOGY/LYMPH: DO YOU TAKE ANY BLOOD THINNERS? (FOR EXAMPLE- COUMADIN, PLAVIX, AGGRENOX, PLATEL, PRADAXA, OR XARELTO) NO . WHEN WAS YOUR LAST DOSE? DATE: TIME: . NEUROLOGY: HAVE YOU FALLEN IN THE PAST 6 MONTHS? NO . ANY NEW EXTREMITY NUMBNESS OR WEAKNESS? NO . CARDIOLOGY: DO YOU HAVE A PACEMAKER OR DEFIBRILLATOR? NO . RESPIRATORY: HAVE YOU BEEN SICK IN THE PAST WEEK? NO . FEVER NO . FLU LIKE SYMPTOMS? NO . COUGH NO . INTEGUMENTARY: DO YOU HAVE ANY RASHES OR OPEN SORES? NO . ALLERGIC/IMMUNO: ARE YOU ALLERGIC TO SHELLFISH OR IV DYE? NO . ANY NEW ALLERGIES? NO . PSYCHIATRIC: DO YOU HAVE THOUGHTS OF HURTING YOURSELF OR SOMEONE ELSE? NO . ARE YOU ABUSED, NEGLECTED, OR IN AN UNSAFE ENVIRONMENT? NO . ENDOCRINOLOGY: ARE YOU DIABETIC? NO . OTHER: DO YOU NEED ANY PRESCRIPTIONS? NO . IF YES, PLEASE LIST: ____ . ANY NEW PROBLEMS WITH YOUR MEDICATIONS? NO . WHEN DID YOU LAST EAT? 09/07 1700 . WHEN DID YOU LAST DRINK? 09/08 1000 . WHAT DID YOU LAST DRINK? WATER WITH MEDS . NAME OF PERSON DRIVING YOU HOME? , FUNMILAYO . DO YOU HAVE ANY OTHER QUESTIONS OR CONCERNS NOPT. HAS NOT HAD A VACCINE IN THE PAST 30 DAYS . VITAL SIGNS WT 235.4 LBS, HT 68 IN, BMI 35.79 INDEX, BP 136/87 MM HG, HR 81 /MIN, RR 18 /MIN, TEMP 97.7 F, OXYGEN SAT % 98%, SAFE IN ENV? (Y/N) Y, NA INITIALS CA 10:58, REVIEWED BY: AD. ASSESSMENTS SPONDYLOSIS OF LUMBAR REGION WITHOUT MYELOPATHY OR RADICULOPATHY - M47.816 (PRIMARY) SPONDYLOSIS OF LUMBOSACRAL REGION WITHOUT MYELOPATHY OR RADICULOPATHY - M47.817 PROCEDURES PN LUMBAR FACET BLOCK THERAPEUTIC PRE PROCEDURE DIAGNOSIS LUMBAR SPONDYLOSIS, LUMBOSACRAL SPONDYLOSIS POST PROCEDURE DIAGNOSIS LUMBAR SPONDYLOSIS, LUMBOSACRAL SPONDYLOSIS PROCEDURE LEFT L4-L5 AND LEFT L5-S1 LUMBAR FACET THERAPEUTIC BLOCK SURGEON DR. DONALD BOWMAN WORD PROCESSING SUPERVISOR NONE ANESTHESIA LOCAL PRE PROCEDURE NOTE THE PATIENT HAS A HISTORY OF CHRONIC LOW BACK PAIN. I EVALUATE THE PATIENT AND REVIEWED THE CHART. I WENT OVER THE RISKS, ALTERNATIVES, AND BENEFITS ASSOCIATED WITH THIS PROCEDURE. THE PATIENT WOULD LIKE TO PROCEED AND GIVE CONSENT TO PERFORMED THE PROCEDURE. THE PATIENT DENIES UNEXPLAINABLE WEIGHT LOSS, FEVER, CHILLS, OR NEW CHANGES IN URINARY OR BOWEL CONTROL DESCRIPTION OF PROCEDURE THE PATIENT WAS BROUGHT TO THE PROCEDURE ROOM AND PLACED IN THE PRONE POSITION. THE LUMBOSACRAL AREA WAS CLEANED WITH CHLORAPREP SOLUTION AND DRAPED ASEPTICALLY. THE PROCEDURE WAS DONE UNDER STERILE CONDITIONS. I CHECKED LATERALITY AND THE LEVEL WHERE THE PROCEDURE WAS GOING TO BE PERFORMED WITH THE PATIENT AND THE SUPPORTING STAFF AT THE MOMENT OF THE TIME OUT IN THE PROCEDURE ROOM. UNDER FLUOROSCOPIC GUIDANCE, THE TARGET POINT WAS SELECTED AT THE LEFT L4-L5 AND LEFT L5-S1 FACET JOINT. TARGET POINT WAS SELECTED AFTER LATERAL ROTATION AND TILT OF THE MAGNIFIER OF THE C-ARM. LIDOCAINE 0.5% WAS USED TO NUMB THE SKIN AND THE SUBCUTANEOUS TISSUE BELOW IT. SPINAL NEEDLES, 22-GAUGE, WERE ADVANCED UNDER FLUOROSCOPIC GUIDANCE AND FOLLOWING PATIENT FEEDBACK UNTIL THE TARGETS WERE TOUCHED. THE POSITION OF THE NEEDLES WAS VERIFIED WITH AP AND LATERAL VIEWS. AFTER PROPER POSITION OF THE NEEDLES WAS ACHIEVED, ISOVUE-M DYE 30% 0.1 ML WAS INJECTED SHOWING ADEQUATE SPREAD OF THE DYE. THEN A SOLUTION OF 1.9 ML OF BUPIVACAINE 0.125% OF KENALOG 10 MG WAS INJECTED AT EACH SITE. THERE WAS NO EVIDENCE OF BLOOD, PARESTHESIA OR CEREBROSPINAL FLUID DURING THE PROCEDURE. THE PATIENT WAS SENT TO THE RECOVERY ROOM. THE PATIENT WAS MOVING THE EXTREMITIES AND DOING WELL. THERE WAS NO COMPLICATION DURING THE PROCEDURE. FLUOROSCOPY TIME WAS 13 SECONDS POST PROCEDURE NOTE THE PATIENT WILL BE SEEN IN A FOLLOW UP IN THE NEXT FEW WEEKS. INSTRUCTIONS WERE GIVEN, QUESTIONS WERE ANSWERED, AND THE PATIENT EXPRESSED UNDERSTANDING AND AGREES WITH THE PLAN. I, MALIHA LOMBARDO, DOCUMENTED THE ABOVE INFORMATION ACTING A SCRIBE FOR DR. BOWMAN. I, DR. BOWMAN, HAVE REVIEWED THE ABOVE DOCUMENT, SCRIBED BY MALIHA LOMBARDO, AND I VERIFY THAT IT IS ACCURATE DIAGNOSTIC IMAGING [facility] FACET BLOCK (PAIN)[id number] PROCEDURE CODES 76570 INJ PARAVERT F JNT L/S 1 LEV, [place]: [place] [address] INJ PARAVERT F JNT L/S 2 LEV, MODIFIERS: LT [id number] RADXPS IN END [id number] PXD DISPOSITION & COMMUNICATION FOLLOW UP 3 WEEKS ELECTRONICALLY SIGNED BY DONALD BOWMAN MD ON 09/19/2017 AT 02:32 PM EST DISCLAIMER : THIS IS A VISIT SUMMARY EXTRACTED FROM THE [employer] CHART. IT IS NOT A COPY OF THE [employer] PROGRESS NOTE. MTDD
== END ==
LOC: M PAIN 10:30
PROVIDERS: ATTEND Anesthesiology
DX: G89.29 Other chronic pain (principal); M47.816 Spondylosis without myelopathy or radiculopathy, lumbar region; M47.817 Spondylosis without myelopathy or radiculopathy, lumbosacral region; F41.9 Anxiety disorder, unspecified; F32.9 Major depressive disorder, single episode, unspecified; R56.9 Unspecified convulsions; F17.220 Nicotine dependence, chewing tobacco, uncomplicated; Z88.5 Allergy status to narcotic agent; Z79.899 Other long term (current) drug therapy
CPT/HCPCS: 64493; 64494; J3301; Q9967

== ENCOUNTER → 2017-11-15 | Outpatient (CLI) | payer MEDICARE, OTHER | LOC: M PAIN 11:00 | DX: M47.816 Spondylosis without myelopathy or radiculopathy, lumbar region (principal); M51.26 Other intervertebral disc displacement, lumbar region; M54.2 Cervicalgia; F41.9 Anxiety disorder, unspecified; F17.220 Nicotine dependence, chewing tobacco, uncomplicated; Z79.899 Other long term (current) drug therapy; Z88.8 Allergy status to other drugs, medicaments and biological substances | CPT/HCPCS: G0463 ==

== ENCOUNTER → 2017-11-30 | Outpatient (CLI) | payer MEDICARE, OTHER ==
[~2017-11-30] MED LIST changes: -/CELE20CA OR; -/DULO30CA PO; -/LOR25TA PO; -/QUET10TA OR; -ATIV0.5T OR; -BACL10TA2 OR; +BUPIVACAINE HCL 0.25% 30 ML VIAL As Ordered; -BUPIVACAINE HCL 0.25% 30 ML VIAL As Ordered ONE; -BUTR10DI TD; -BUTR20DI TD; -CARB10TAXR OR; -COMPOUND CREAM TOP; -DILA4TAB PO; -DIVA50TAEC PO; -FLON0.05; -GABA300C2 PO; -HYDR-3719 PO; +ISOVUE-M 300 61% 15ML VIAL (Q9967) As Ordered; -ISOVUE-M 300 61% 15ML VIAL (Q9967) As Ordered ONE; -LIDO5DIS EX; +LIDOCAINE 1% SDV INJ 30 ML VIAL As Ordered; -LIDOCAINE 1% SDV INJ 30 ML VIAL As Ordered ONE; -LORA0.5T PO; -LYRI200C PO; -LYRI75CA PO; -MAXA5TAB OR; -MAXA5TAB10 PO; -META800T82 PO; -METH750T OR; -METH750T PO; -OXYCODONE IR PO; -PERC10TA26 PO; -PERC7.5T12 PO; -PERCOCET PO; -SIMV10TA2 OR; -TOPA200T PO; -TOPA50TA PO; -TOPI200T OR; -TPS CREAM TOP; -TRAZ50TA2 PO; -TRIAMCINOLONE ACETONIDE SUSP 40 MG/ML VIAL (J3301) As Ordered ONE; -VALI2TAB PO; -VICO5TAB OR; -VIMP50TA3 PO; -ZANA4CAP PO; -[UNRECOGNIZED DRUG - CODE] PO; -[UNRECOGNIZED DRUG - REMARK] TD; -diazePAM 5 MG TAB As Ordered ONE; -lovaza PO; -nuvigil PO; -oxyCODONE 5MG TAB As Ordered ONE; -topical cream TOP; -vimpat PO
== END ==
LOC: M PAIN 08:45
DX: G89.29 Other chronic pain (principal); M47.816 Spondylosis without myelopathy or radiculopathy, lumbar region; M47.817 Spondylosis without myelopathy or radiculopathy, lumbosacral region; I10 Essential (primary) hypertension; G43.909 Migraine, unspecified, not intractable, without status migrainosus; F41.9 Anxiety disorder, unspecified; F32.9 Major depressive disorder, single episode, unspecified; R56.9 Unspecified convulsions; F17.220 Nicotine dependence, chewing tobacco, uncomplicated; Z79.899 Other long term (current) drug therapy; Z88.5 Allergy status to narcotic agent
CPT/HCPCS: Q9967

== ENCOUNTER → 2017-12-20 | Outpatient (CLI) | payer MEDICARE, OTHER | LOC: M PAIN 13:15 | DX: M47.816 Spondylosis without myelopathy or radiculopathy, lumbar region (principal); M51.26 Other intervertebral disc displacement, lumbar region; M54.2 Cervicalgia; I10 Essential (primary) hypertension; F17.220 Nicotine dependence, chewing tobacco, uncomplicated; F41.9 Anxiety disorder, unspecified; F32.9 Major depressive disorder, single episode, unspecified; Z79.899 Other long term (current) drug therapy; Z88.8 Allergy status to other drugs, medicaments and biological substances | CPT/HCPCS: G0463 ==

== ENCOUNTER → 2018-01-10 | Outpatient (CLI) | payer MEDICARE, OTHER | LOC: M PAIN 10:30 | DX: G89.29 Other chronic pain (principal); M47.817 Spondylosis without myelopathy or radiculopathy, lumbosacral region; F17.220 Nicotine dependence, chewing tobacco, uncomplicated; G43.909 Migraine, unspecified, not intractable, without status migrainosus; I10 Essential (primary) hypertension; F41.9 Anxiety disorder, unspecified; F32.9 Major depressive disorder, single episode, unspecified; R56.9 Unspecified convulsions; Z88.8 Allergy status to other drugs, medicaments and biological substances | CPT/HCPCS: Q9967 ==

== ENCOUNTER → 2018-05-12 | Outpatient (CLI) | payer MEDICARE, OTHER | LOC: M PAIN 09:30 | DX: M47.816 Spondylosis without myelopathy or radiculopathy, lumbar region (principal); M51.26 Other intervertebral disc displacement, lumbar region; M54.2 Cervicalgia; G89.29 Other chronic pain; G43.909 Migraine, unspecified, not intractable, without status migrainosus; F41.9 Anxiety disorder, unspecified; F32.9 Major depressive disorder, single episode, unspecified; R56.9 Unspecified convulsions; F17.220 Nicotine dependence, chewing tobacco, uncomplicated; Z79.899 Other long term (current) drug therapy; Z88.5 Allergy status to narcotic agent | CPT/HCPCS: G0463 ==

== ENCOUNTER → 2018-06-30 | Outpatient (CLI) | payer MEDICARE, OTHER | LOC: M PAIN 11:00 | DX: M47.816 Spondylosis without myelopathy or radiculopathy, lumbar region (principal); M51.26 Other intervertebral disc displacement, lumbar region; M79.7 Fibromyalgia; M54.81 Occipital neuralgia; G43.909 Migraine, unspecified, not intractable, without status migrainosus; F41.9 Anxiety disorder, unspecified; F32.9 Major depressive disorder, single episode, unspecified; G40.909 Epilepsy, unspecified, not intractable, without status epilepticus; F17.220 Nicotine dependence, chewing tobacco, uncomplicated; M50.20 Other cervical disc displacement, unspecified cervical region; M51.36 Other intervertebral disc degeneration, lumbar region; Z79.899 Other long term (current) drug therapy; Z88.5 Allergy status to narcotic agent | CPT/HCPCS: G0463 ==

== ENCOUNTER 2021-10-02 12:47 | Outpatient (CLI) | payer MEDICARE, OTHER ==
[~2021-10-02] VITALS: Ht 172.7 cm; Wt 77.1 kg
[~2021-10-02 12:47] MED LIST changes: +/LOR25TA PO; +ALBUTEROL 90 MCG/ACT 8GM HFA INHALER INH PRN; +ALBUTEROL SULFATE 2.5 MG/0.5 ML INH NEB SOLN INH PRN; +ATIV0.5T OR; +BACL10TA2 OR; -BUPIVACAINE HCL 0.25% 30 ML VIAL As Ordered; +BUTR10DI TD; +BUTR20DI TD; +CELE1CAP4 OR; +COMPOUND CREAM TOP; +CYMB1CAP5 PO; +DILA4TAB PO; +DIVA50TAEC PO; +EPINEPHrine INJ 1 MG/ML 1ML AMP IM PRN; +FLON0.05; +GABA300C2 PO; +HYDR-3719 PO; -ISOVUE-M 300 61% 15ML VIAL (Q9967) As Ordered; +LIDO5DIS EX; -LIDOCAINE 1% SDV INJ 30 ML VIAL As Ordered; +LORA0.5T PO; +LYRI200C PO; +LYRI75CA PO; +MAXA5TAB OR; +MAXA5TAB10 PO; +META800T82 PO; +METH750T OR; +METH750T PO; +NS 1,000 ML IV SCH; +OXYC1TAB23 PO; +OXYCODONE IR PO; +PERC10TA26 PO; +PERC7.5T12 PO; +SERO1TAB OR; +SIMV10TA2 OR; +TEGR100T3 OR; +TOPA200T PO; +TOPA50TA PO; +TOPI200T OR; +TPS CREAM TOP; +TRAZ50TA2 PO; +VALI2TAB PO; +VICO5TAB OR; +VIMP50TA3 PO; +ZANA4CAP PO; +[UNRECOGNIZED DRUG - CODE] PO; +[UNRECOGNIZED DRUG - REMARK] TD; +diphenhydrAMINE 50MG/ML VIAL (J1200) IV PRN; +lovaza PO; +methylPREDNISolone 125MG 2ML VIAL IV PRN; +nuvigil PO; +topical cream TOP; +vimpat PO
[2021-10-02] MEDS ORDERED: CASIRIVIMAB/IMDEVIMAB 1,200 MG in NS 250 ML IV ONE (13:30)
[2021-10-02 13:56] VITALS: BP 154/82
[2021-10-02 14:26] VITALS: BP 136/68
[2021-10-02 14:56] VITALS: BP 128/81
[2021-10-02 15:56] VITALS: BP 151/72
== END 2021-10-02 15:56 | disposition home or self-care (01) ==
LOC: M OPCLI4PR 12:47
PROVIDERS: ATTEND Physician Assistant
DX: U07.1 COVID-19 (principal); Z88.8 Allergy status to other drugs, medicaments and biological substances

== ENCOUNTER 2025-01-25 19:58 | Emergency (ER) | payer MEDICARE, OTHER ==
[~2025-01-25] VITALS: Ht 172.7 cm; Wt 86.4 kg
[~2025-01-25 19:58] MED LIST changes: -ALBUTEROL 90 MCG/ACT 8GM HFA INHALER INH PRN; -ALBUTEROL SULFATE 2.5 MG/0.5 ML INH NEB SOLN INH PRN; -EPINEPHrine INJ 1 MG/ML 1ML AMP IM PRN; -NS 1,000 ML IV SCH; -diphenhydrAMINE 50MG/ML VIAL (J1200) IV PRN; -methylPREDNISolone 125MG 2ML VIAL IV PRN
[2025-01-25] MEDS: BOOSTRIX VACCINE (TETANUS/DIPHTH/ACEL. PERTUSSIS) 0.5ML SYR IM ONE (20:52)
[2025-01-25] MEDS: LIDOCAINE 1% MDV 20ML VIAL SC ONE (21:10)
[2025-01-25 22:34] VITALS: BP 136/81; TEMP 98.1; O2SAT 99
== END 2025-01-25 22:41 | disposition home or self-care (01) ==
LOC: M ED 19:58
DX: S61.412A Laceration without foreign body of left hand, initial encounter (principal); W26.8XXA Contact with other sharp object(s), not elsewhere classified, initial encounter; Y92.009 Unspecified place in unspecified non-institutional (private) residence as the place of occurrence of the external cause; Y93.89 Activity, other specified; Y99.9 Unspecified external cause status; Z23 Encounter for immunization

== ENCOUNTER 2025-06-20 10:50 | Emergency (ER) | payer SELFPAY ==
[~2025-06-20] VITALS: Ht 172.7 cm; Wt 76.8 kg
[2025-06-20] MEDS ORDERED: CYCL10TA20 PO (11:02)
[2025-06-20] MEDS: FLUORESCEIN OPHTH 1 MG STRIP OD ONE (11:05)
[2025-06-20] MEDS: PROPARACAINE 0.5% OPHTH SOL 15ML OD ONE (11:05)
[2025-06-20] MEDS ORDERED: ERYT5OIN25 OD (11:51)
[2025-06-20] MEDS: ERYTHROMYCIN OPHTH OINT OD ONE (11:51)
[2025-06-20 11:52] VITALS: BP 150/93; TEMP 97.8; O2SAT 98
== END 2025-06-20 12:02 | disposition home or self-care (01) ==
LOC: M ED 11:27
DX: S05.01XA Injury of conjunctiva and corneal abrasion without foreign body, right eye, initial encounter (principal); H01.001 Unspecified blepharitis right upper eyelid; W54.1XXA Struck by dog, initial encounter; Y92.009 Unspecified place in unspecified non-institutional (private) residence as the place of occurrence of the external cause; Y93.9 Activity, unspecified; Y99.9 Unspecified external cause status; I10 Essential (primary) hypertension; R56.9 Unspecified convulsions; Z88.5 Allergy status to narcotic agent; Z88.8 Allergy status to other drugs, medicaments and biological substances